=== PATIENT | female | born 1995 | race Caucasian/White ===

== ENCOUNTER 2021-01-22 15:03 | Emergency (ER) | payer OTHER ==
[~2021-01-22] VITALS: Ht 165.1 cm; Wt 81.7 kg
[2021-01-22 15:47] LABS: HEMATOCRIT 36.9 % (37.0-47.0); HEMOGLOBIN 12.1 gm/dL (12.0-15.0); MCH 26.1 pg (26.0-34.0); MCHC 32.8 g/dL (28.0-37.0); MCV 79.6 fL (80.0-100.0); RBC 4.64 mil/uL (4.20-5.00); RDW 14.8 % (10.5-14.5); WBC 9.2 thou/uL (4.0-11.0)
[2021-01-22 15:58] LABS: ANION GAP 9 mmol/L (7-16); BUN 10 mg/dL (7-18); CALCIUM 8.9 mg/dL (8.5-10.1); CHLORIDE 101 mmol/L (98-107); CO2 28 mmol/L (21-32); CREATININE 0.8 mg/dL (0.6-1.0); GLUCOSE 105 mg/dL (74-106); POTASSIUM 3.1 mmol/L (3.5-5.1); SODIUM 138 mmol/L (136-145)
[2021-01-22 16:07] LABS: ALBUMIN 3.8 g/dL (3.4-5.0); SGOT 39 U/L (15-37); SGPT 50 U/L (30-65); TOTAL BILIRUBIN 0.6 mg/dL (0.2-1.0); TOTAL PROTEIN 8.7 g/dL (6.4-8.2)
[2021-01-22] MEDS ORDERED: VENTOLIN HFA 1818 GM INH (18:59)
[2021-01-22] MEDS ORDERED: PREDNISONE 10 M10 MG PO (18:59)
[2021-01-22] MEDS ORDERED: DOXYCYCLINE 10100 MG PO (18:59)
[2021-01-22 19:20] VITALS: BP 123/82
--- NOTE | 2021-01-23 07:13 | EKG ---
[address] [address] ELECTROCARDIOGRAM REPORT Name: MAURICIO DE LA ROSA Room #: [facility]P [facility]ENTERCharlene#: [id number] Admission: 01/22/21 Attend Phys: Discharge: 01/22/21 Date of : [birth year] Report #: [id number] [facility] ED Test Date: 2021-01-22 Test Time: 15:42:35 Pat Name: MAURICIO DE LA ROSA Department: Room: Gender: F [employer] Operator: YVONNE : 1995 Requested By: Elvira Rust Order Number: [id number] MD: Carlo Lehman Measurements Intervals [place] Rate: 112 P: 58 NE: 143 QRS: 32 QRSD: 100 T: 53 QT: 336 QTc: 459 Interpretive Statements Sinus tachycardia Nonspecific T abnormalities, lateral leads No previous ECG available for comparison Electronically Signed On 01-23-2021 7:13:06 [employer] by Carlo Lehman [email or web address] <ELECTRONICALLY SIGNED> By: Carlo Lehman MD, [facility] 01/23/21 0713 1542 1542 Carlo Lehman MD, FACC /EPI
== END 2021-01-22 19:37 | disposition home or self-care (01) ==
LOC: ER 15:03
PROVIDERS: Nurse Practitioner Family
DX: J06.9 Acute upper respiratory infection, unspecified (principal); Z20.822 Contact with and (suspected) exposure to COVID-19; R06.02 Shortness of breath